=== PATIENT | male | born 1955 | race Caucasian/White ===

== ENCOUNTER → 2023-10-29 14:06 | Outpatient (REF) | payer MEDICARE, OTHER, SELFPAY | LOC: PAVMRI 14:06 | PROVIDERS: ATTENDING PHYSICIAN Family Medicine | DX: H53.122 Transient visual loss, left eye (principal); R20.2 Paresthesia of skin; I10 Essential (primary) hypertension | CPT/HCPCS: 70546; 70553; A9585 ==

== ENCOUNTER → 2024-04-06 12:20 | Outpatient (REF) | payer MEDICARE, OTHER, SELFPAY | LOC: RAD 12:20 | PROVIDERS: ATTENDING PHYSICIAN Nurse Practitioner Family; FAMILY PHYSICIAN Family Medicine | DX: R19.7 Diarrhea, unspecified (principal) | CPT/HCPCS: 74018 ==

== ENCOUNTER → 2024-04-23 06:26 | Day surgery (SDC) | payer MEDICARE, OTHER, SELFPAY | LOC: GI 06:26 | PROVIDERS: ATTENDING PHYSICIAN Internal Medicine | DX: R12 Heartburn (principal); R19.7 Diarrhea, unspecified; K29.50 Unspecified chronic gastritis without bleeding | CPT/HCPCS: 43239; 88305; 88342 ==